=== PATIENT | female | born 1940 | race Caucasian/White ===

== ENCOUNTER 2024-10-28 15:25 | Inpatient (IN) | payer MEDICARE, SELFPAY ==
[2024-10-28] VITALS (10 sets, daily range): BP systolic 124–183; BP diastolic 69–105
--- NOTE | 2024-10-28 14:55 | ITS.CL.PACE ---
Flight Test Shop Mechanic - Pacemaker Implant
Pacemaker Implant
Procedure Report:
Conduction system pacing Permanent Pacemaker Placement:
Ms. Sanz is an 84 yrs old woman with malignant cancer s/p chemotherapy and has normal LV systolic function but has developed intermittent AV block as noted on her ILR and is recommended a PPM.
Indications:
Intermittent third degree heart block
Date of the Procedure:
10/28/24
Pre-Operative Diagnosis: Third degree heart block
Post-Operative Diagnosis: Third degree heart block
Procedure Performed: Conduction system pacing dual chamber permanent pacemaker
Performing Physician:
Loy Foote MD
Anesthesia:
See anesthesia report.
Detailed Description of the Procedure:
The patient was identified using hospital identification and informed consent obtained for the procedure. The risks were explained to the patient and the family including, but not limited to: Bleeding, infection, arrhythmia, stroke,
vascular/cardiac/lung puncture, surgery, pacemaker dependency/device malfunction. All questions were answered.
A surgical pause was performed in accordance with hospital regulations. Anesthesia service provided sedation as reported separately. Antibiotics administered IV for risk of bacterial colonization. After obtaining informed and written consent, the
patient was brought to the electrophysiology laboratory.
The initial rhythm was sinus rhythm on Dopamine.
The procedure site was meticulously prepared with surgical scrub and allowed to dry with no pooling. Sterile draping was applied to cover the procedure site. The image intensifier was draped with sterile bag and positioned over the patient.
A venogram was obtained showing no cephalic with her prior shoulder surgery and patent axillary vein into the subclavian vein.
A surgical pause and time out was performed immediately prior to the procedure with review of her medical history, recent labs, allergies and medications with site of procedure identified and consent noted in the chart. Antibiotics pre operatively
given. All team members concurred.
The left infraclavicular region was prepped and draped in the usual sterile fashion. Local anesthesia was administered subcutaneously using 1% lidocaine / Bupivacaine. An incision at the delto-pectoral groove was made and axillary vein was accessed
using micro-puncture apparatus. The vascular sheaths were introduced for lead access.
A subcutaneous pocket was created with blunt dissection and use of electrocautery. Hemostasis was excellent.
The guide wire was advanced to the RA and was advanced to the RV. The preformed curved long hemostatic peel away HIS sheath was advanced into the RV cavity. A left bundle pacing wire was advanced into the sheath to the tip with ventricular signals
noted with unipolar manner.
The HIS location was identified under guidance of the fluoroscopy and the pacing wire signals. The sheath with the pacing lead was moved deeper into the RV cavity on the septum at a more inferior and distal to the HIS signals.
There was sheath approximation confirmed on CHRISTAL view. Once adequate signals were noted on the electrograms of the pacing lead in the sheath with W pattern signals on the RV septum, the lead was advanced and clockwise turns were done under
fluoroscopic guidance. The septum was engaged and the lead was paced intermittently after every 2-3 turns. The Impedance of the lead was measured that remained stable around 1000 Ohm. The lead was paced and septal pacing was noted. The sheath was
placed again to the septum and the lead was advanced 2-3 turns with pacing with each advancement. The ventricular capture was monitored throughout and the captures gradually changed from RV pacing to non-selective pacing to LBB pacing with R wave on
V1 morphology. �
The long guiding sheath was cut and removed from the RV without change in lead position, impedance, sensing, or capture. The lead was sutured to the underlying pectoralis fascia with 0-silk stitches.
Then the attention was given to atrial lead. A passive atrial lead was placed in the RA and into the RAA using tines. There were excellent impedance and thresholds.
The leads were attached to the pulse generator in standard configuration with acceptable sensing and threshold parameters. The pocket was irrigated with antibiotic solution; the pocket was inspected with no active bleeding noted. The device and the
leads were placed in the pocket.
A pursestring suture using 2-0 Vicryl was placed at the insertion of the pacing leads.
The pocket was rinsed with antibiotics soaked solution.
Deep subcutaneous tissues were closed with three layers of 2-0 V loc sutures; and the dermis was reopposed using a running 5-0 Monocryl subcuticular suture.
Sponge counts / sharp counts were appropriate.
Procedure End:
The procedure was tolerated well. A Dermabond was applied at theincision. Aquacel bandaged was applied.
Estimated Blood loss:
5 cc
Specimens Removed:
No cultures and no specimens were obtained. No intraoperative pathology was identified.
Urine output:
None
Packs / Drains/ Tubes:
None
Instrument / Sponge Count Correct:
Yes
Flouro time:
4.4min / 6.8 mGy
Complications of the Procedure:
None
Condition of Patient at Time of Transfer:
Hemodynamically stable with no neurological or vascular compromise.
Device information:�
Generator: Amplidata; Model: W1DR01; Serial # [id number]�
����������� RA pacing lead: Medtronic; Model: 4574-45; Serial # [id number]
����������� Measured data on the RV lead was sensing of 2.6 mV, impedance of 608 ohms and threshold of 1.0 V at 0.4ms. �
����������� RV LBB pacing lead: Medtronic; Model: 3830-69; Serial # [id number]
����������� Measured data on the RV lead was sensing of 12.4mV, impedance of 817 ohms and threshold of 0.75 V at 0.4ms�
PROGRAMMING PARAMETERS:�
Duane parameter settings were AAIR <=> DDDR 60-130 �
����������� Paced AV interval: 180ms
����������� Sensed AV interval: 150 ms.
����������� Rate Adaptive A-V Interval: on
����������� Mode switch ON
�
Summary:
Successful implantation of MRI compatible dual chamber conduction system pacing permanent pacemaker.
Results/Recommendations:
-Please follow up CXR�
1. Please provide patient with adequate pain control�
Instructions to be given to patient:�
- Please follow up with [facility] at [address] [place] [address] ([phone]) to get your wound checked in 2 weeks of your discharge. Then follow with
- Do not wet incision site until after it is evaluated at cardiology clinic. No baths or showers until then. Sponge baths / showers are OK but dab dry the dressing after it is wet.�
- Allow 'steri strips' to fall off on their own�
- Do not lift left elbow above shoulder, particularly with sudden jerking movements, for 1 month�
- Do not lift anything weighing more than 5 pounds with the left arm for 1 month�
- If you notice any fevers, shortness of breath, lightheadedness, chest pain, or worsening swelling in the wound site, please contact the arrhythmia clinic, contact your supply specialist, or present to the hospital for evaluation.�
Loy Foote MD
Electrophysiology
--- NOTE | 2024-10-28 14:56 | ITS.CL.IMPLP ---
Telecommunications Line Installer - Implant Loop
Implant Loop
Procedure Report:
Procedure: Extraction of Loop Recorder.
Date of the procedure: 10/28/24
Procedure Physician: Loy Foote MD [facility]
Indication: Old ILR �- now s/p PPM.
Description of the procedure:
Patient was brought to the holding area after informed consent was obtained.�� The time out was performed immediately before the procedure.
The left parasternal chest area was prepped and draped in sterile fashion with chlorahexidine prep x 3 times. Lidocaine 1% was injected subcutaneously for local anesthesia. The loop recorder was palpated and the location was identified. An incision
was made at the previoous insertion location. The blunt dissection was done to identify the location of the ILR. The capsule was cut and the ILR was pulled out of the capsule. The dermis was closed with 5-0 Monocryl sutures and Dermabond and a
pressure Tegaderm dressing was placed.
There were no immediate complications.
Patient can be discharged home.
Explanted device:
iodine Reveal Linq; Model# [id number]; Serial# [id number].
Conclusion:
Successful removal of the loop recorder.
--- NOTE | 2024-10-28 16:20 | PTCARENOTE ---
Patient admitted to IVU, AO x3. A-paced, left chest wall dressing prem and intact. BP 172/84, oxygen 1 liter NC, 100%. oriented to room and call reeves placed in reach
[2024-10-28 18:56] LABS: Hematocrit 32.8 % (37.0-47.0); Hemoglobin 10.7 g/dL (12.0-16.0); Mean Corp Hgb Conc. 32.6 g/dL (33.0-37.0); Mean Corpuscular Volume 85.2 fL (81.0-99.0); Nucleated Red Blood Cells % 0 %; Red Cell Dist. Width 14.1 % (11.5-14.5)
[2024-10-28 18:57] LABS: ALT (SGPT) < 10 U/L (0-35); AST (SGOT) 19 U/L (14-36); Albumin 3.9 g/dl (3.5-5.0); Alkaline Phosphatase 60 U/L (38-126); Blood Urea Nitrogen 18 mg/dl (7-17); Calcium 9.5 mg/dl (8.4-10.2); Carbon Dioxide 22 mmol/L (22-30); Chloride 111 mmol/L (98-107); Estimated Creatinine Clearance 48 ml/min; Glucose 100 mg/dl (70-99); Potassium 4.3 mmol/L (3.5-5.1); Sodium 137 mmol/L (135-145); Total Protein 6.5 g/dl (6.3-8.2); eGFR > 60.00
[2024-10-28 19:27] LABS: Platelet Count 192 10^3/uL (130-400)
[2024-10-28] MEDS: SYMBICORT 160/4.5 MCG INHALER 2 PUFF INH (19:41)
[2024-10-28] MEDS: NAPROSYN 250 MG PO (20:25)
[2024-10-28] MEDS: LAMICTAL 150 MG PO (22:30)
[2024-10-28] MEDS: XANAX 0.5 MG PO (22:30)
[2024-10-28] MEDS: ANCEF 5 IV (22:31)
[2024-10-28] MEDS: TYLENOL 650 MG PO (23:08)
[2024-10-29 04:05] VITALS: BP 143/72
[2024-10-29 04:32] VITALS: BMI 19.4
[2024-10-29 04:49] LABS: Hematocrit 31.8 % (37.0-47.0); Hemoglobin 10.4 g/dL (12.0-16.0); Mean Corp Hgb Conc. 32.7 g/dL (33.0-37.0); Mean Corpuscular Volume 87.1 fL (81.0-99.0); Platelet Count 210 10^3/uL (130-400); Red Cell Dist. Width 14.2 % (11.5-14.5)
[2024-10-29 05:06] LABS: Blood Urea Nitrogen 22 mg/dl (7-17); Calcium 9.0 mg/dl (8.4-10.2); Carbon Dioxide 26 mmol/L (22-30); Chloride 109 mmol/L (98-107); Estimated Creatinine Clearance 36 ml/min; Glucose 89 mg/dl (70-99); Potassium 5.0 mmol/L (3.5-5.1); Sodium 140 mmol/L (135-145); eGFR > 60.00
--- NOTE | 2024-10-29 05:39 | PTCARENOTE ---
Pt NSR with occasional Apace on monitor. Pt c/o mild discomfort on left shoulder/chest, PRN Tylenol given. Pt denies any allergic reaction for Tylenol, ASA or caffeine (listed in her allergies list). Left chest dsg DCI. Pt ambulates with x 1
assist. Call reeves w/in reach.
[2024-10-29] MEDS: ANCEF 5 IV (05:56)
[2024-10-29] MEDS: SYNTHROID 88 MCG PO (05:56)
[2024-10-29] MEDS: SYMBICORT 160/4.5 MCG INHALER 2 PUFF INH (07:26)
[2024-10-29 07:31] VITALS: BP 144/76
[2024-10-29] MEDS: ZOLOFT 100 MG PO (07:36)
[2024-10-29] MEDS: VITAMIN D3 (cholecalciferol) 50 MCG PO (07:36)
[2024-10-29] MEDS: NORVASC 5 MG PO (07:37)
[2024-10-29] MEDS: NAPROSYN 250 MG PO (07:37)
[2024-10-29] MEDS: THERAGRAN 1 TABLET PO (07:37)
[2024-10-29] MEDS: FOLVITE 1 MG PO (07:37)
--- NOTE | 2024-10-29 07:49 | W.PN.CD ---
Today's Communication / Plan
-
- Stable for discharge
- Follow up in a week at [facility] for incision check
- Follow up with Dr. Clancy as routine
Impression / Plan
-
Ms. Sanz is an 84 yrs old woman with malignant cancer s/p chemotherapy and has normal LV systolic function but has developed intermittent AV block with significant pause was transferred to from [facility] for urgent pacemaker.
Complete heart block
- Intermittent AV block
- Currently in sinus rhythm with normal AV conduction
- S/p PPM - conduction system 10/28/24
- MVP on - not pacing at this time
- ECHO at [facility] - normal systolic fx
- post CXR - clear. no PTX
- Pressure dressing removed.
HTN
- Borderline normal.
- Continue Amlodipine 5 mg QD
Physical Exam
Vital Signs/Labs
Vital Signs
Temp Pulse Resp BP Pulse Ox
97.4 F 62 16 143/72 100
10/29/24 07:44 10/29/24 07:29 10/29/24 07:44 10/29/24 04:05 10/29/24 07:44
10/28/24 10/29/24 10/30/24
06:59 06:59 06:59
Actual Weight 48 kg
10/29/24 04:15
10/29/24 04:15
Physical Exam
Constitutional: No acute distress and Comfortable
EENT: Anicteric and Moist mucous membranes
Cardiovascular: Rhythm & rate is regular, Pedal edema is absent and JVD pressure is normal
Respiratory: Respiratory effort normal, Lungs clear to auscul. and Wheeze Absent
GI: Soft, Distention absent and Non tender
Neuro/Psych: Alert
Other: Cardiac Device Site
Data Reviewed
-
Date of Service: October 29, 2024
Medical Decision Making: Reviewed Test Results, Test Interpretation and Review of Case with other Provider
EKG: Tracing Personally Visualized and interpreted
Echo: Report Reviewed by me
Labs: Labs Reviewed by me
Old Records: Reviewed
--- NOTE | 2024-10-29 09:32 | CM ---
Reviewed chart. Met with Mr. Sanz to review discharge plans. She states she is feeling well and maybe able t go home soon. She states prior to admission she resides with her son and [id number] in a one story home with three steps to enter.
She state prior to admission she ambulates with a rolling walker or single point cane. She states she mostly uses a rolling walker. She states she has a single point cane and rolling walker at home. She states she has a prescription plan and uses
[facility] pharmacy. She states her son is retired and will be home with her. We reviewed [facility] and at this time she is declining [facility]. Medical work-up in progress. The discharge plan is to return home with her son and [id number]
when medically stable.
--- NOTE | 2024-10-29 10:12 | PTCARENOTE ---
Assumed care 0700. Patient AO x3. Left chest wall pressure dressing and Aquacel dry and intact. Anterior wall Tegaderm and dressing dry with bruising. A-paced, murmur, no edema. Walking to the bathroom voiding, and immobilizer in place. Breakfast
ordered and patient in chair, call reeves in reach
[2024-10-29 11:01] VITALS: BMI 19.4
[2024-10-29 11:39] VITALS: BP 151/75
--- NOTE | 2024-10-29 12:30 | PTCARENOTE ---
Discharge teaching completed with patient, she verbalized understanding, IV and telemetry removed. Son called and made aware of discharge
--- NOTE | 2024-10-29 12:38 | W.DS.TRANS ---
DC Summary - Legal Compliance Officer
-
Discharge Instructions:
Discharge Diagnosis/Procedures Third-degree heart block, intermittent
Procedure: Medtronic dual-chamber conduction
system pacemaker implantation 10/28/2024
Procedure: Removal of loop recorder 10/28/2024
Diet Low Sodium,Low Cholesterol
Activity No strenuous activity
Additional Activity See attached instructions
Driving Restrictions No driving for 1 week
Bathing Restrictions OK to Shower
Instructions:
Stand-Alone Forms: DC Inst - Implanted Device
Changes to Home Medications: No
Discharge Medications:
DC Medications w/original date entered in [employer]
albuterol sulfate 90 mcg/actuation aerosol inhaler 2 puff inhalation 6XD PRN SOB 10/28/24
alprazolam 0.5 mg tablet (Xanax) 0.5 mg PO HS Sleep 10/28/24
amlodipine 5 mg tablet 5 mg PO DAILY Blood Pressure 10/28/24
cholecalciferol (vitamin D3) 50 mcg (2,000 unit) capsule (Vitamin D3) 50 mcg PO DAILY Supplement 10/28/24
fluticasone furoate 100 mcg-vilanterol 25 mcg/dose inhalation powder (Breo Ellipta) 2 inh inhalation BID Lung/Breathing Issues 10/28/24
folic acid 1 mg tablet 1 mg PO DAILY Supplement 10/28/24
lamotrigine 150 mg tablet (Lamictal) 150 mg PO QHS Mental Health/Anxiety 10/28/24
levothyroxine 88 mcg tablet (Synthroid) 1 mcg PO DAILY Thyroid 10/28/24
multivitamin 1 tab PO DAILY 10/28/24
naproxen sodium 220 mg tablet (Aleve) 220 mg PO BID 10/28/24
sertraline 100 mg tablet (Zoloft) 100 mg PO DAILY 10/28/24
Home Medication Changes
Pending Results: No
--- NOTE | 2024-10-29 13:51 | PTCARENOTE ---
Patient escorted to [facility] in a wheelchair
== END 2024-10-29 13:52 | disposition home or self-care (01) | DRG 243 ==
LOC: IVU 15:25
PROVIDERS: ADMITTING PHYSICIAN Internal Medicine Cardiovascular Disease
PROC: 02H63JZ Insertion of Pacemaker Lead into Right Atrium, Percutaneous Approach (ICD-10-PCS; 2024-10-28)
PROC: 0JH606Z Insertion of Pacemaker, Dual Chamber into Chest Subcutaneous Tissue and Fascia, Open Approach (ICD-10-PCS; 2024-10-28)
PROC: 02HK3JZ Insertion of Pacemaker Lead into Right Ventricle, Percutaneous Approach (ICD-10-PCS; 2024-10-28)
PROC: 0JPT02Z Removal of Monitoring Device from Trunk Subcutaneous Tissue and Fascia, Open Approach (ICD-10-PCS; 2024-10-28)
DX: I44.2 Atrioventricular block, complete (principal); C34.90 Malignant neoplasm of unspecified part of unspecified bronchus or lung; C79.51 Secondary malignant neoplasm of bone; J44.9 Chronic obstructive pulmonary disease, unspecified; E78.00 Pure hypercholesterolemia, unspecified; I25.10 Atherosclerotic heart disease of native coronary artery without angina pectoris; F31.9 Bipolar disorder, unspecified; I12.9 Hypertensive chronic kidney disease with stage 1 through stage 4 chronic kidney disease, or unspecified chronic kidney disease; N18.30 Chronic kidney disease, stage 3 unspecified; F41.1 Generalized anxiety disorder; E03.9 Hypothyroidism, unspecified; Z92.21 Personal history of antineoplastic chemotherapy
CPT/HCPCS: 33208; 33286; 71045; 80048; 80053; 85025; 85027; 93005; 94640; C1769; C1785; C1887; C1892; C1898; Q9967